=== PATIENT | female | born 1995 | race Caucasian/White ===

== ENCOUNTER 2021-08-03 21:19 | Emergency (ER) | payer BC ==
[~2021-08-03] VITALS: Ht 162.6 cm; Wt 72.7 kg
[2021-08-03 21:33] VITALS: TEMP 97.9
[2021-08-03 22:44] VITALS: BP 110/72; PULSE 86
== END 2021-08-03 22:44 | disposition home or self-care (01) ==
LOC: COL.ER 21:19
DX: R07.2 Precordial pain (principal)

== ENCOUNTER → 2021-09-27 | Outpatient (CLI) | payer BC | LOC: COL.RAD 09-20 08:00 | DX: R11.2 Nausea with vomiting, unspecified (principal) | CPT/HCPCS: A9541 ==